=== PATIENT | female | born 1945 | race Caucasian/White ===

== ENCOUNTER → 2016-11-13 | Outpatient (CLI) | payer OTHER ==
--- NOTE | 2016-11-13 11:01 | Pre-Procedure Note/Attestation ---
Pre-Procedure Note/Attestation Complete Prior to Procedure Planned Procedure: left Procedure Narrative: PICC Indications for Procedure Pre-Operative Diagnosis: breast CA Attestation I attest that I discussed the nature of the procedure; its benefits; risks and complications; and alternatives (and the risks and benefits of such alternatives ), prior to the procedure, with the patient (or the patient's legal national sales representative). I attest that, if there was a reasonable possibility of needing a blood transfusion, the patient (or the patient's legal national sales representative) was given the [facility] standardized written summary, pursuant to the Rajendra Paris Blood Safety Act ([place] Health and Safety Code # 1645, as amended). I attest that I re-evaluated the patient just prior to the surgery and that there has been no change in the patient's H&P, except as documented below: EUFEMIA BLAIR M.D. Nov 13, 2016 11:01
--- NOTE | 2016-11-13 13:08 | Diagnostic Imaging Report ---
Indications: Needs long-term IV access Technique: Informed consent obtained prior to commencement of the procedure. Case discussed with referring oncologist concerning bilateral mastectomy. She indicated that patient only had sentinel node biopsies and no radiation or node dissection and is therefore at low risk for lymphedema. Ultrasound confirms patent compressible left basilic vein. Total sterile technique, including sterile probe cover and sterile gel, hat, mask,, sterile gown, large sterile drape, and preparation with 2% chlorhexidine utilized. Local anesthesia with 1% lidocaine. Under real-time ultrasound guidance, puncture basilic vein using 21-gauge needle, documented and archived, passage 0.018 guidewire under direct fluoroscopy, which was used to determine appropriate catheter length, exchange for 5 Kinyarwanda peel-away sheath. 5 Kinyarwanda Bard dual-lumen power PICC cut to 39 cm. It was inserted through the peel-away sheath. Peel-away sheath and guidewire removed. Catheter fixed to the skin. Both catheter ports aspirated and flushed. Patient tolerated procedure well, without immediate complication. Digital radiograph documents satisfactory catheter tip position, at the deep superior vena cava. Total fluoroscopy time 0.5 minutes. Total dose area product 9.9 dGycm2 Impression: Successful placement of PICC under sonographic and fluoroscopic guidance, as described above.
== END | disposition home or self-care (01) ==
LOC: RAD 09:59
DX: I74.4 Embolism and thrombosis of arteries of extremities, unspecified (principal); C50.412 Malignant neoplasm of upper-outer quadrant of left female breast
CPT/HCPCS: 36569; 76937

== ENCOUNTER 2017-05-01 12:55 | Outpatient (CLI) | payer OTHER | END 2017-05-01 14:55 | disposition home or self-care (01) | LOC: RAD 12:55 | DX: Z79.899 Other long term (current) drug therapy (principal) ==